=== PATIENT | female | born 1995 | race Caucasian/White ===

== ENCOUNTER 2018-08-23 03:13 | Emergency (ER) | payer SELFPAY ==
[2018-08-23 03:18] VITALS: BP 136/87
--- NOTE | 2018-08-23 05:29 | ER Document Report ---
HPI - HPI Time Seen by Provider: 08/23/18 03:49 Pain Level: 2 Notes: Patient is an otherwise healthy 23-year-old female who presents 1 hour after the onset of a sore throat. Patient denies history of strep throat. Patient reports that she woke up at 2:00 this morning with a pain in her throat. She states she examined her throat and found there to be "pus pockets". Patient denies any fevers or abdominal pain. - EENT EENT: REPORTS: Sore Throat - NEURO Neurology: DENIES: Headache - RESPIRATORY Respiratory: DENIES: Trouble Breathing, Coughing - REPRODUCTIVE LMP: 08/07/18 Reproductive: DENIES: : Past Medical History - General Information source: Patient - Social History Smoking Status: Never Smoker Family History: Reviewed & Not Pertinent Patient has suicidal ideation: No Patient has homicidal ideation: No - Medical History Medical History: Negative Renal/ Medical History: Denies: Hx Peritoneal Dialysis Surgical Hx: Negative - Immunizations Immunizations up to date: Yes Vertical Provider Document - CONSTITUTIONAL Notes: PHYSICAL EXAMINATION: GENERAL: Well-appearing, well-nourished and in no acute distress. HEAD: Atraumatic, normocephalic. EYES: Pupils equal round extraocular movements intact, conjunctiva are normal. ENT: Nares patent, mild tonsillar erythema without swelling or exudates. Uvula midline, no evidence of peritonsillar abscess. NECK: Normal range of motion, no cervical lymphadenopathy. LUNGS: No respiratory distress, lung sounds clear and equal bilaterally. Musculoskeletal: Normal range of motion NEUROLOGICAL: Normal speech, normal gait. PSYCH: Normal mood, normal affect. SKIN: Warm, Dry, normal turgor, no rashes or lesions noted. - INFECTION CONTROL TRAVEL OUTSIDE OF THE [place] IN LAST 30 DAYS: No Course - Re-evaluation Re-evalutation: Rapid strep is negative. Throat culture pending. Patient will be discharged home in stable condition at this time. ED return precautions were discussed and patient verbalized understanding and agreement with plan. - Vital Signs Vital signs: Temp Pulse Resp BP Pulse Ox 98.2 F 77 20 136/87 H 99 08/23/18 03:16 08/23/18 03:16 08/23/18 03:16 08/23/18 03:16 08/23/18 03:16 Discharge - Discharge Clinical Impression: Sore throat Condition: Stable Disposition: HOME, SELF-CARE Instructions: Sore Throat ([facility]) Additional Instructions: The rapid strep test done today was negative. Throat culture is pending. My recommendation is for you to go home and take 25 to 50 mg of Benadryl for your symptoms. Return to the emergency department for any new or worsening symptoms. Forms: Return to Work
== END 2018-08-23 05:23 | disposition home or self-care (01) ==
LOC: ER 03:13
DX: J02.9 Acute pharyngitis, unspecified (principal)
CPT/HCPCS: 87070; 87880; 99283